=== PATIENT | female | born 1990 | race Caucasian/White ===

== ENCOUNTER 2019-01-26 15:57 | Emergency (ER) | payer MEDICAID ==
[~2019-01-26] VITALS: Ht 157.5 cm; Wt 85.4 kg
[~2019-01-26 15:57] MED LIST: ALBU8.5H8 INH; PRED20TA PO
[2019-01-26 16:25] VITALS: Ht 157.5 cm; Wt 85.4 kg
[2019-01-26] MEDS ORDERED: ACETAMINOPHEN 500 MG TAB PO STA (20:53)
[2019-01-26] MEDS ORDERED: IBUP-1542 PO (21:10)
[2019-01-26] MEDS ORDERED: AMOX1TAB10 PO (21:10)
[2019-01-26] MEDS ORDERED: PSEU120T11 PO (21:10)
[2019-01-26] MEDS ORDERED: FLUT9.9S NASAL (21:10)
--- NOTE | 2019-01-26 21:14 | ERD ---
ER Documentation Chief Complaint Chief Complaint nasal/chest congestion, runny nose, CORTES X 4 days HPI This is a 28-year-old female with a history of asthma presents ED with complaints of nasal congestion and face pain times 4 days. Patient admits to sinus pain and sinus pressure as well as headache. Denies fevers, chills, body aches, back pain, ear pain, sore throat, chest pain, shortness breath, trouble breathing, cough, sputum production, neck pain and all other symptoms. No known drug allergies. ROS All systems reviewed and are negative except as per history of present illness. Medications Home Meds Active Scripts Pseudoephedrine Hcl (Sudafe 12-Hour) 120 Mg Tablet.er, 120 MG PO BID PRN for CONGESTION for 5 Days, TAB.SA Prov:BLAISE SMITH PA-C 01/26/19 Fluticasone Propionate (Flonase Allergy Relief) 9.9 Ml Williamson.susp, 1 SPRAY NASAL BID, #1 BOTTLE TO EACH NOSTRIL Prov:BLAISE SMITH PA-C 01/26/19 Ibuprofen* (Motrin*) 600 Mg Tab, 600 MG PO Q6, #30 TAB Prov:BLAISE SMITH PA-C 01/26/19 Amoxicillin/Potassium Clav (Amox-Clav 875-125 mg Tablet) 875-125 mg Tab, 1 TAB PO BID for 10 Days, #20 TAB Prov:BLAISE SMITH PA-C 01/26/19 Prednisone* (Prednisone*) 20 Mg Tab, 40 MG PO DAILY for 4 Days, TAB Prov:LISA LUNA DO 12/07/15 Albuterol Sulfate* (Proair HFA*) 8.5 Gm Hfa.aer.ad, 2 PUFF INH Q4H PRN for WHEEZING AND SOB, #1 INHALER Prov:LISA LUNA DO 12/07/15 Allergies Allergies: Coded Allergies: No Known Allergy (Unverified , 01/26/19) PMhx/Soc History of Surgery: Yes (c section) Hx Respiratory Disorders: Yes (asthma) Hx Alcohol Use: No Hx Substance Use: No Hx Tobacco Use: No Physical Exam Vitals Vital Signs Date Temp Pulse Resp B/P (MAP) Pulse Ox O2 O2 Flow FiO2 Time Delivery Rate 01/26/19 98.5 69 18 120/73 99 16:25 (89) Physical Exam Physical Exam Vitals signs: Reviewed by me. General: Well developed, well nourished, in no acute distress. Patient is awake and alert. Head: Normocephalic, atraumatic. Eyes: Normal conjunctiva, Pupils PERRLA, EOM intact grossly ENT: Pharynx is clear, Moist mucous membranes, external ears, nose and mouth normal there is tenderness when percussing the bilateral maxillary sinuses, nasal congestion present, Neck: Supple, no masses, lymphadenopathy or JVD Respiratory: Clear to auscultation bilaterally with no wheezing, rhonchi, rales, no distress Cardiovascular: RRR, no murmurs, rubs, or gallops Neurologic: Alert and oriented, moving all extremities, normal speech, no focal weakness, no cerebellar signs. Normal mentation Skin: warm and dry, No rash Psych: Normal mood Results 24 hrs Current Medications Medications Dose Sig/Aubree Start Time Status Last (Trade) Ordered Route PRN Stop Time Admin Dose Reason Admin 1,000 mg ONCE STAT 01/26/19 DC 01/26/19 Acetaminophen PO 20:53 01/26/19 21:01 (Tylenol 20:55 Tab) Procedures/MDM ER COURSE: The patient was stable throughout ED course. I kept the patient and/or family informed of laboratory and diagnostic imaging results throughout the emergency room course. The patient was promptly evaluated and a treatment plan was devised based on H&P and other data. This plan was discussed with the patient who agreed and had no further questions or concerns prior to discharge. MEDICAL DECISION MAKING: This is a 28-year-old female presents ED with complaints of nasal congestion and sinus pain and pressure times 4 days. Given history and physical this is likely sinusitis. No evidence of ENT emergency including the not limited to retro deep tracking infection, sepsis, meningitis, pharyngeal abscess, peritonsillar abscess, Ludwigs, epiglottitis, mastoiditis. Patient's vitals are stable she can be managed outpatient with close follow-up. Advised patient follow up with primary care in 48 hours. Return to ED with any worsening symptoms DISPOSITION PLAN: We discussed follow up with the patient's primary care doctor within 24 to 48 hours. Patient counseled regarding my diagnostic impression and care plan. Prior to discharge all questions answered. Pt agrees with treatment plan and understands strict return precautions. Precautionary instructions provided including instructions to return to the ER if not improving or for any worsening or changing symptoms or concerns. ExitCare instructions provided. Prior to discharge, patients vital signs have been reviewed SPECIALIST FOLLOW UP RECOMMENDED: None Patient has been advised to follow up with primary care in 1-2 days. Disclaimer: Inadvertent spelling and grammatical errors are likely due to EHR/dictation software use and do not reflect on the overall quality of patient care. Also, please note that the electronic time recorded on this note does not necessarily reflect the actual time of the patient encounter. Departure Diagnosis: Primary Impression: Sinusitis Sinusitis location: unspecified location Chronicity: unspecified Qualified Codes: J32.9 - Chronic sinusitis, unspecified Condition: Stable Patient Instructions: Sinusitis, Abx Tx [facility] Usted se cortes hecho un examen mdico de control que le indica que no est en king condicin que requiera tratamiento urgente en el Departamento de Emergencia. Un estudio ms profundo y el tratamiento de bishop condicin pueden esperar sin ningn riesgo hasta que usted sea atendida/o en el consultorio de bishop mdico o king clnica. Es responsabilidad suya arreglar king jim para el seguimiento del aleksandr. MANEJO DE CONDICIONES NO URGENTES EN EL FUTURO 1) Si usted tiene un mdico de atencin primaria: Usted debera llamar a bishop mdico de atencin primaria antes de venir al departamento de emergencia. Despus de las horas de consultorio, bishop doctor o bishop asociado/a est disponible por telfono. El mdico o enfermero de daryn en el servicio telefnico puede asesorarle por lizbeth medio para atender el problema, o aleksandr contrario se puede programar king jim. 2) Si usted no tiene un mdico de atencin primaria: Llame al mdico o clnica de referencia que aparece abajo chata las horas de consultorio para hacer king jim para que le vean. CLINICAS: [facility] [phone] [facility] [phone] [facility] [phone] [place] [phone] [place] [address] [phone] [place] [phone] Additional Instructions: Paciente aconseja volver a Departamento de urgencias inmediatamente para sntomas nuevos o que empeoran . Paciente aconseja posteriores con el PCP en 1-2 astorga . Paciente verbaliza la comprehensin y est de acuerdo con el tratamiento y el curso de accin. Si el paciente no tiene ninguna de atencin primaria pueden seguir con [facility] [id number] [place] [address] o [facility] + [address] [address] BLAISE SMITH PA-C Jan 26, 2019 21:14
[2019-01-26 21:22] VITALS: BP 114/73; PULSE 68; RESP 18
== END 2019-01-26 21:23 | disposition home or self-care (01) ==
LOC: FTE 15:57
DX: J32.9 Chronic sinusitis, unspecified (principal); J45.909 Unspecified asthma, uncomplicated
CPT/HCPCS: Z7502; Z7610; 99283